=== PATIENT | male | born 1980 | race Caucasian/White ===

== ENCOUNTER → 2016-07-09 | Emergency (ER) | payer MEDICAID ==
[~2016-07-09] VITALS: Wt 80.9 kg
[~2016-07-09] MED LIST: MECL-77 PO; MECLIZINE 12.5 MG TAB PO ONE; SOD CHLORIDE 0.9% 1,000 ML IV ONE; SOD CHLORIDE 0.9% 500 ML IV ONE
[2016-07-09 16:07] LABS: ADD SCAN DIFF NO
[2016-07-09 16:10] LABS: BASOPHILS % 0.3 % (0.0-2.0); EOSINOPHILS # 0.1 10^3/ul (0.0-0.5); EOSINOPHILS % 0.8 % (0.0-7.0); HEMATOCRIT 48.4 % (42.0-52.0); HEMOGLOBIN 16.2 g/dl (14.0-18.0); LYMPHOCYTES # 2.4 10^3/ul (0.8-2.9); LYMPHOCYTES % 38.3 % (15.0-51.0); MEAN CORPUSCULAR HEMOGLOBIN 32.1 pg (29.0-33.0); MEAN CORPUSCULAR HGB CONC 33.5 g/dl (32.0-37.0); MEAN CORPUSCULAR VOLUME 95.8 fl (82.0-101.0); MEAN PLATELET VOLUME 9.8 fl (7.4-10.4); MONOCYTE # 0.8 10^3/ul (0.3-0.9); MONOCYTES % 12.2 % (0.0-11.0); NEUTROPHIL # 3.1 10^3/ul (1.6-7.5); NEUTROPHILS % 48.2 % (39.0-77.0); PLATELET COUNT 227 10^3/UL (140-415); RED BLOOD COUNT 5.05 10^6/ul (4.70-6.10); WHITE BLOOD COUNT 6.3 10^3/ul (4.8-10.8)
[2016-07-09 16:11] LABS: ADD UMIC NO; URINE BILIRUBIN (Dip) NEGATIVE (NEGATIVE); URINE BLOOD (Dip) NEGATIVE (NEGATIVE); URINE COLOR LT. YELLOW (YELLOW); URINE GLUCOSE (Dip) NEGATIVE (NEGATIVE); URINE KETONES (Dip) NEGATIVE (NEGATIVE); URINE LEUKOCYTE ESTERASE (Dip) NEGATIVE (NEGATIVE); URINE NITRITE (Dip) NEGATIVE (NEGATIVE); URINE TOTAL PROTEIN (Dip) NEGATIVE (NEGATIVE); URINE UROBILINOGEN (Dip) 0.2 E.U./dL (0.1-1.0)
[2016-07-09 16:39] LABS: ALBUMIN 4.8 g/dl (3.3-4.9)
[2016-07-09 16:40] LABS: POTASSIUM 4.4 mmol/L (3.5-5.1)
[2016-07-09 16:42] LABS: ALBUMIN/GLOBULIN RATIO 1.14; BILIRUBIN,INDIRECT 0.3 mg/dl (0-1.1); BILIRUBIN,TOTAL 0.3 mg/dl (0.2-1.3); CREATININE 0.76 mg/dl (0.61-1.24)
[2016-07-09 16:43] LABS: CALCIUM 10.1 mg/dl (8.4-10.2)
--- NOTE | 2016-07-09 16:59 | ERD ---
ER Documentation Chief Complaint Date/Time DATE: 07/09/16 TIME: 16:57 Chief Complaint vomiting and dizziness for a week and a half with no trauma no neuro def HPI 36-year-old otherwise healthy male presents to the emergency department complaining of new onset intermittent dizziness x7 days. He describes the dizziness as lightheadedness and denies any spinning of the room. He states the dizziness is worse upon standing and reports associated diaphoresis. Patient also notes some recent loose stools and states he believes that he has recently lost weight although he is unaware of how much. Patient denies any recent illness, headache, pain, fever, nausea, vomiting, unilateral weakness, numbness, or blurred vision. Patient has no medical history. ROS All systems reviewed and are negative except as per history of present illness. Medications Home Meds Active Scripts Meclizine Hcl* (Meclizine Hcl*) 25 Mg Tablet, 25 MG PO Q8H Y for DIZZINESS for 10 Days, TAB Prov:ISABEL ROWAN PA-C 07/09/16 Allergies Allergies: Coded Allergies: No Known Allergy (Unverified , 07/09/16) PMhx/Soc Medical and Surgical Hx: pt denies Medical Hx, pt denies Surgical Hx History of Surgery: No Anesthesia Reaction: No Hx Neurological Disorder: No Hx Respiratory Disorders: No Hx Cardiac Disorders: No Hx Psychiatric Problems: No Hx Miscellaneous Medical Probl: No Hx Alcohol Use: Yes (socially) Hx Substance Use: No Hx Tobacco Use: No Smoking Status: Never smoker Physical Exam Vitals Vital Signs Date Time Temp Pulse Resp B/P Pulse Ox O2 Delivery O2 Flow Rate FiO2 07/09/16 15:52 68 144/75 100 75 151/99 70 133/86 07/09/16 13:46 98.8 85 20 150/91 100 Physical Exam Const: Well-developed, well-nourished, nontoxic-appearing, in no acute distress Head: Atraumatic, normocephalic Eyes: Normal Conjunctiva, no nystagmus currently, no erythema. PERRLA. EOMs intact bilaterally ENT: Normal External Ears, Nose and Mouth. Neck: Full range of motion..~ No meningismus. Resp: Clear to auscultation bilaterally Cardio: Regular rate and rhythm, no murmurs Abd: Soft, non tender, non distended. Normal bowel sounds Skin: No petechiae or rashes Back: No midline or flank tenderness Ext: No cyanosis, or edema Neur: Awake and alert. Cranial nerves II through XII intact. Psych: Normal Mood and Affect Result Diagram: 07/09/16 1535 07/09/16 1535 Results 24 hrs Laboratory Tests Test 07/09/16 15:16 07/09/16 15:30 07/09/16 15:35 Urine Bilirubin NEGATIVE Urine Clarity CLEAR Urine Color LT. YELLOW Urine Glucose NEGATIVE% Urine Hemoglobin NEGATIVE Urine Ketones NEGATIVE Urine Leukocyte Esterase NEGATIVE Urine Nitrite NEGATIVE Urine Specific White [place]wl 1.015 Urine Total Protein NEGATIVE Urine Urobilinogen 0.2 E.U./dL Urine pH 7.0 Troponin I < 0.010ng/ml Alanine Aminotransferase (ALT/SGPT) 74IU/L Albumin 4.8g/dl Albumin/Globulin Ratio 1.14 Alkaline Phosphatase 85IU/L Anion Gap 19 Aspartate Amino Transf (AST/SGOT) 59IU/L Basophils # 0.010^3/ul Basophils % 0.3% Blood Urea Nitrogen 15mg/dl Calcium Level 10.1mg/dl Carbon Dioxide Level 29mmol/L Chloride Level 101mmol/L Creatinine 0.76mg/dl Direct Bilirubin 0.00mg/dl Eosinophils # 0.110^3/ul Eosinophils % 0.8% Globulin 4.20g/dl Glucose Level 79mg/dl Hematocrit 48.4% Hemoglobin 16.2g/dl Indirect Bilirubin 0.3mg/dl Lipase 226U/L Lymphocytes # 2.410^3/ul Lymphocytes % 38.3% Mean Corpuscular Hemoglobin 32.1pg Mean Corpuscular Hemoglobin Concent 33.5g/dl Mean Corpuscular Volume 95.8fl Mean Platelet Volume 9.8fl Monocytes # 0.810^3/ul Monocytes % 12.2% Neutrophils # 3.110^3/ul Neutrophils % 48.2% Nucleated Red Blood Cells # 0.010^3/ul Nucleated Red Blood Cells % 0.0/100WBC Platelet Count 19266^3/UL Potassium Level 4.4mmol/L Red Blood Count 5.0510^6/ul Red Cell Distribution Width 13.0% Sodium Level 145mmol/L Total Bilirubin 0.3mg/dl Total Protein 9.0g/dl White Blood Count 6.310^3/ul Current Medications Medications (Trade) Dose Ordered Sig/Sergey Route PRN Reason Start Time Stop Time Status Last Admin Dose Admin Meclizine HCl 25 mg 25 mg ONCE ONCE PO 07/09/16 15:30 07/09/16 15:31 DC 07/09/16 15:54 Sodium Chloride 1,000 ml @ 1,000 mls/hr Q1H ONCE IV 07/09/16 15:30 07/09/16 16:29 DC 07/09/16 15:54 Sodium Chloride (NS) 500 ml @ 500 mls/hr Q1H ONCE IV 07/09/16 18:00 07/09/16 18:59 07/09/16 17:37 Procedures/MDM Cheri-Hallpike exam negative. Dizziness nonreproducible EKG: Interpreted by Dr. Ruiz Rate/Rhythm: Sinus bradycardia QRS, ST, T-waves: Rightward axis .early repolarization. no changes consistent w/ acute ischemia Impression: No evidence of ischemia or arrhythmia Vital signs were reviewed. Patient is afebrile. Patient is not hypoxic. Physical exam unremarkable CBC showed no evidence of systemic infection or severe anemia. CMP showed no evidence of electrolyte abnormalities, severe acidosis, alkalosis , renal failure, or liver disease. Lipase showed no evidence of acute pancreatitis. Troponin negative. UA showed no evidence of acute infection or hematuria. MDM: 36-year-old otherwise healthy male presents with new onset dizziness which has been intermittent for the past week. Patient well-appearing, in no acute distress and reports improvement of symptoms after receiving bolus of fluids and meclizine for dizziness. Dizziness was not reproducible upon exam. No evidence of nystagmus or neurologic deficit. Case discussed with Dr Jade. Patient awaiting CT results in case is transferred to Dr. Jade. ISABEL ROWAN PA-C Jul 09, 2016 16:59 ISABEL ROWAN PA-C Jul 09, 2016 16:59
--- NOTE | 2016-07-09 18:16 | RADRPT ---
PROCEDURE: CT brain without IV contrast. CLINICAL INDICATION: Dizziness. TECHNIQUE: CT scan of the brain was performed without IV contrast on a 64-slice multidetector scan ner. . Coronal and sagittal reformatted images were made. Radiation dose: Total CTDI volume: 43 mGY. Total DLP: 698 mGycm. COMPARISON: None available. FINDINGS: The ventricles and cerebral sulci are normal in size and morphology. The elder/white matter differen tiation is well preserved. There is no abnormal intra-axial or extra-axial high or low density lesi on, suggesting tumor or infarct, bleeding or inflammatory lesion. No subdural, epidural hematoma or subarachnoid bleeding is seen. No displacement of the midline. T he posterior fossa is normal. The visualized paranasal sinuses, orbits and temporal bones are gunnar l. No abnormal calvarial lesion. IMPRESSION: 1. Unremarkable CT brain without IV contrast RPTAT: GG .Guanakito Giron MD, MD Date Time Electronically viewed and signed by .Guanakito Giron MD, on 07/09/2016 18:15 .Y/
[2016-07-09 19:02] VITALS: BP 132/81; PULSE 58; RESP 18; TEMP 98.6
== END | disposition home or self-care (01) ==
LOC: FTE 13:39
DX: R42 Dizziness and giddiness (principal)
CPT/HCPCS: 36415; 70450; 80053; 81003; 83690; 84484; 85025; 93005; J7030; J7040; Z7502; Z7610

== ENCOUNTER 2018-04-13 13:27 | Emergency (ER) | END 2018-04-13 16:10 | disposition home or self-care (01) ==